=== PATIENT | male | born 1985 | race Native Hawaiian/Other Pacific Islander ===

== ENCOUNTER 2016-12-24 21:58 | Emergency (ER) | payer OTHER ==
[~2016-12-24] VITALS: Ht 170.2 cm; Wt 90.7 kg
[2016-12-25 00:15] VITALS: BP 142/98; TEMP 98.1
== END 2016-12-25 00:21 | disposition home or self-care (01) ==
LOC: ED 21:58
DX: S39.012A Strain of muscle, fascia and tendon of lower back, initial encounter (principal); M54.5 Low back pain
CPT/HCPCS: 99283

== ENCOUNTER 2019-06-20 15:43 | Emergency (ER) | payer OTHER ==
[~2019-06-20] VITALS: Ht 170.2 cm; Wt 97.5 kg
[2019-06-20 15:56] VITALS: BP 165/108; TEMP 98
== END 2019-06-20 18:32 | disposition home or self-care (01) ==
LOC: ED 15:43
DX: M25.512 Pain in left shoulder (principal); Z87.828 Personal history of other (healed) physical injury and trauma
CPT/HCPCS: 96372; 99283; J1885; J2930

== ENCOUNTER 2020-10-04 06:33 | Emergency (ER) | payer OTHER ==
[~2020-10-04] VITALS: Ht 170.2 cm; Wt 97.5 kg
[2020-10-04 06:56] VITALS: TEMP 97.2
[2020-10-04] MEDS ORDERED: BUPR8SUB2 PO (07:05)
[2020-10-04 08:20] VITALS: BP 141/84
== END 2020-10-04 09:02 | disposition home or self-care (01) ==
LOC: ED 06:33
DX: N45.1 Epididymitis (principal); N50.811 Right testicular pain
CPT/HCPCS: 81000; 99283